=== PATIENT | male | born 1970 | race Two or more races ===

== ENCOUNTER 2017-09-07 14:19 | Emergency (ER) | payer OTHER ==
[2017-09-07 14:48] VITALS: TEMP 98.2; BMI 22.4
--- NOTE | 2017-09-07 17:14 | PDOC ---
History of Present Illness <Curry Mensah - Last Filed: 09/07/17 17:13> <Will Dowd - Last Filed: 09/07/17 20:25> - General Chief Complaint: Blood Sugar Problem Stated Complaint: DIABETES Past History - Past Medical History COPD: No Diabetes: Yes - Immunization History Immunization Up to Date: Yes - Suicide/Smoking/Psychosocial Hx Smoking History: Never smoked Have you smoked in the past 12 months: No Information on smoking cessation initiated: No Hx Alcohol Use: No Drug/Substance Use Hx: No Substance Use Type: None <Curry Mensah - Last Filed: 09/07/17 17:13> <Will Dowd - Last Filed: 09/07/17 20:25> - Past Medical History Allergies/Adverse Reactions: Allergies Allergy/AdvReac Type Severity Reaction Status Date / Time No Known Allergies Allergy Verified 09/07/17 14:45 Home Medications: Ambulatory Orders Metformin HCl 500 mg PO BID #60 tablet 09/07/17 Metformin HCl 500 mg PO BID #60 tablet 09/07/17 *Physical Exam - Vital Signs Last Vital Signs Temp Pulse Resp BP Pulse Ox 98.2 F 76 16 131/80 96 09/07/17 14:45 09/07/17 14:45 09/07/17 14:45 09/07/17 14:45 09/07/17 14:45 <MakennaCurry - Last Filed: 09/07/17 17:13> - Vital Signs Last Vital Signs Temp Pulse Resp BP Pulse Ox 98.2 F 76 16 131/80 96 09/07/17 14:45 09/07/17 14:45 09/07/17 14:45 09/07/17 14:45 09/07/17 14:45 <Will Dowd - Last Filed: 09/07/17 20:25> ED Treatment Course - LABORATORY CBC & Chemistry Diagram: 09/07/17 18:30 09/07/17 18:30 <Will Dowd - Last Filed: 09/07/17 20:25> Medical Decision Making - Medical Decision Making 09/07/17 20:25 Patient presents to the emergency department with hyperglycemia has not been to doctor in several years and blurry vision. His vision is 20/40 bilaterally has no visual loss no visual field deficits His serum glucose was 300 he was treated with normal saline and metformin emergency department. He was provided with primary care follow-up at her clinic on Saturday he was given a prescription for metformin he will need to follow up with the clinic for further management he will return to emergency [facility] for any severe worsening symptoms or for any concerns. <Will Dowd - Last Filed: 09/07/17 20:25> *DC/Admit/Observation/Transfer <Curry Mensah - Last Filed: 09/07/17 17:13> <Will Dowd - Last Filed: 09/07/17 20:25> Diagnosis at time of Disposition: Hyperglycemia - Prescriptions Prescriptions: Metformin HCl 500 mg PO BID #60 tablet Metformin HCl 500 mg PO BID #60 tablet - Referrals Referrals: Zachery Balderrama MD [Staff Physician] - - Patient Instructions Printed Discharge Instructions: DI for Hyperglycemia -- Adult Additional Instructions: Start metformin as prescribed. [place] [facility] The phone number is [phone] The Address is [address] [place] [address] Return to emergency department for any severe worsening symptoms or for any concerns. Print Language: [place]
[2017-09-07] MEDS ORDERED: SODIUM CHLORIDE 0.9% 1000 ML INFUS.BAG IV ONE (17:37)
--- NOTE | 2017-09-07 18:15 | PDOC ---
Attending Attestation - HPI HPI: 09/07/17 18:16 The patient is a 46 year old male with a significant PMH of Type 1 diabetes who presents to the emergency department with blurry vision since this morning. The patient reports that has not seen an eye doctor in 2 years. The patient does not have a primary care physician. The patient denies chest pain, shortness of breath, headache and dizziness. Denies fever, chills, nausea, vomit, diarrhea and constipation. Allergies: NKA Past surgical history: None reported. Social history: No reported alcohol, drug, or cigarette use. - Physicial Exam PE: 09/07/17 18:30 Vitals: Triage Vital signs reviewed General Appearance: no acute distress, well nourished well developed, Head: Atraumatic, normocephalic Eyes: (+) 20/40 bilaterally. Pupils equal reactive round, extraocular movement intact Neck: Supple;No Nuchal rigidity Chest Wall: Nontender Cardiac: Regular rate and rhythm, no murmurs, no rubs, no gallops, Lungs: Clear to auscultation bilateral, good air movement bilaterally, Abdomen: Soft, nondistended, normal bowel sounds, nontender to palpation Extremities: Full range of motion to all extremities, no cyanosis, clubbing, or edema Skin: Warm and dry, no rashes or lesions, no petechiae Neuro: AOX3; Cranial Nerves 2-12 grossly intact, Strength intact to all extremities, Sensation intact to all extremities Psych: normal mood, normal affect
[2017-09-07 18:40] LABS: BASOPHIL 0.5 % (0-2.0); MCH 28.5 pg (25.7-33.7); MCHC 33.8 g/dl (32.0-35.9); MEAN CELL VOLUME 84.3 fl (80-96); MEAN PLT VOLUME 9.1 fl (7.5-11.1); NEUTROPHILS 60.6 % (42.8-82.8); PLATELET COUNT 185 K/MM3 (134-434); RDW 12.6 % (11.9-15.9); WHITE BLOOD COUNT 5.9 K/mm3 (4.0-10.0)
[2017-09-07 19:23] VITALS: BP 130/86; PULSE 92
[2017-09-07 19:25] LABS: ALBUMIN 3.3 g/dl (3.4-5.0); ALK PHOS 169 U/L (45-117); ANION GAP 10 (8-16); BILIRUBIN,TOTAL 0.3 mg/dL (0.2-1.0); CALCIUM 8.3 mg/dL (8.5-10.1); CO2 26 mmol/L (21-32); CREATININE 0.7 mg/dL (0.7-1.3); SGOT/AST 13 U/L (15-37); SGPT/ALT 52 U/L (12-78); TOT PROT 6.9 g/dl (6.4-8.2)
[2017-09-07 19:26] LABS: GLUCOSE,RANDOM 315 mg/dL (74-106)
[2017-09-07] MEDS ORDERED: metFORMIN HCL 500 MG TABLET (FP) PO ONE (19:58)
[2017-09-07] MEDS ORDERED: metFORMIN HCL 500 MG TABLET (FP) ONE (20:01)
== END 2017-09-07 20:11 | disposition home or self-care (01) ==
LOC: JER 14:19
PROC: 4A07X0Z Measurement of Visual Acuity, External Approach (ICD-10-PCS; principal; 2017-09-07)
DX: E11.65 Type 2 diabetes mellitus with hyperglycemia (principal); Z79.84 Long term (current) use of oral hypoglycemic drugs
CPT/HCPCS: 36415; 80053; 85025; 99173; 99281-25

== ENCOUNTER 2018-12-11 20:50 | Inpatient (IN) | payer OTHER ==
--- NOTE | 2018-12-11 21:00 | PDOC ---
Rapid Medical Evaluation Chief Complaint: Syncope/Near Syncope Time Seen by Provider: 12/11/18 20:55 Medical Evaluation: Allergies Allergy/AdvReac Type Severity Reaction Status Date / Time No Known Allergies Allergy Verified 09/07/17 14:45 12/11/18 20:59 The patient presents with a chief complaint of: near syncope and confusion, diabetic (not taking meds), states increased thirst I have performed a brief in-person evaluation of this patient Pertinent physical exam findings: vss, appears confused , slightly lethargic, fruity breath I have ordered the following: labs, urine, ekg, ct, xray, bgm The patient will proceed to the ED for further evaluation. Discharge Disposition - Diagnosis Hyperglycemia - Discharge Dispostion Disposition: HOME Condition at time of disposition: Stable - Prescriptions - Referrals - Patient Instructions - Post Discharge Activity
[2018-12-11] MEDS ORDERED: SODIUM CHLORIDE 1,000 ML IV STA (21:04)
[2018-12-11] MEDS ORDERED: SODIUM CHLORIDE 0.9% 1000 ML INFUS.BAG IV ONE (21:26)
--- NOTE | 2018-12-11 21:33 | PDOC ---
Attending Attestation - HPI HPI: 12/12/18 01:11 Patient is a 48 year old female with a PMH of DM presents after an episode of lightheadedness and hyperglycemia. Patient's history is limited secondary to slurred speech. Patient's blood glucose in the ER was >600. Patient reports he is noncompliant to his DM meds. Patient denies cp, sob, F/C/N/V, constipation, diarrhea or urinary symptoms. Allergie: NKDA Surgeries: None reported Social Hx: No reported drug or cigarette use. Occasional alcohol use. - Physicial Exam PE: 12/12/18 01:11 ADULT PHYSICAL EXAM Constitutional: Awake, alert, but confused. Head: Normocephalic. Atraumatic Eyes: PERRL. EOMI. Conjunctivae are not pale. ENT: Mucous membranes are moist and intact. Posterior pharynx without exudates or erythema. Uvula midline. Neck: Supple. Full ROM. No lymphadenopathy. Cardiovascular: Regular rate. Regular rhythm. S1, S2 regular. Distal pulses are 2+ and symmetric. Pulmonary/Chest: No evidence of respiratory distress. Clear to auscultation bilaterally No wheezing, rales or rhonchi. Abdominal: Soft and non-distended. There is no tenderness. No rebound, guarding or rigidity. No organomegaly. No palpable masses. Good bowel sounds. Musculoskeletal: No edema. No cyanosis. No clubbing. Full range of motion in all extremities. Nocalf tenderness. Radial/pedal pulses are intact and 2+ bilaterally Skin: Skin is warm and dry. No petechiae. No purpura. Neurological: (+) Altered mental status. (+) Slurred speech. Psychiatric: Good eye contact. - Medical Decision Making <Stephanie Nagel - Last Filed: 12/12/18 01:11> - Resident Resident Name: Donato Sheridan - ED Attending Attestation I have performed the following: I have examined & evaluated the patient, The case was reviewed & discussed with the resident, I agree w/resident's findings & plan, Exceptions are as noted - Critical Care Time Total Critical Care Time: 45 Critical Care Statement: The care of this patient involved high complexity decision making to prevent further life threatening deterioration of the patient 's condition and/or to evaluate & treat vital organ system(s) failure or risk of failure. - Medical Decision Making 12/11/18 21:28 I, Dr. Kaelyn Meyer, DO, attest that this document has been prepared under my direction and personally reviewed by me in its entirety. I further attest, that it accurately reflects all work, treatment, procedures and medical decision -making performed by me. 12/11/18 21:30 a/p: 48yo male presents for eval of hyperglycemia and an episode of feeling lightheaded at work and seeing a bright light at work -noncomplaint with dm meds -glu >600 -pt nonfocal neuro, but confused and poor historian -denies f/c -concern for toxic metabolic encephalopathy -will send labs, lactate, ammonia -will obtain ekg -cxr -head ct -will give ivf hydration, acetone -will monitor and reassess -pt will most likely need admission 12/11/18 22:02 pt now with R sided facial droop, confused UE and LE muscle strength 5/5 follows simple commands stat head ct ordered - stroke protocol 12/11/18 22:17 no acute findings on head ct, pending official read call palced to neurology cxr clear 12/11/18 22:33 resident discussed the case with Dr. Collins who recommends stabilizing metabolic abnl no tpa at this time 12/11/18 22:37 acetone + insulin gtt ordered 12/12/18 01:02 facial droop has resolved glucose 132 insulin gtt stopped will downgrade to tele <Kaelyn Meyer - Last Filed: 12/12/18 01:43> Heart Score/ECG Review - ECG Intrepretation Comment:: 12/11/18 21:28 sinus at 86, nl axis, nl interval, no acute st/t wave findings, mildly peaked t waves <Kaelyn Meyer - Last Filed: 12/12/18 01:43>
[2018-12-11 21:50] LABS: VENOUS PC02 42.9 mmHg (38-52); VENOUS PH 7.4 (7.32-7.42); VENOUS PO2 52.3 mmHg (28-48)
[2018-12-11 21:55] LABS: BASO % 0.2 % (0-2.0); EOS % 0.9 % (0-4.5); HEMATOCRIT 40.7 % (35.4-49); MCH 29.4 pg (25.7-33.7); MCHC 34.5 g/dl (32.0-35.9); MEAN CELL VOLUME 85.4 fl (80-96); MEAN PLT VOLUME 8.9 fl (7.5-11.1); MONO % 11.5 % (3.8-10.2); NEUT % 66.4 % (42.8-82.8); PLATELET COUNT 268 K/MM3 (134-434); RBC 4.76 M/mm3 (4.00-5.60); RDW 12.5 % (11.9-15.9); WHITE BLOOD COUNT 6.1 K/mm3 (4.0-10.0)
--- NOTE | 2018-12-11 22:00 | PDOC ---
History of Present Illness - General Chief Complaint: Syncope/Near Syncope Stated Complaint: FAINTED Time Seen by Provider: 12/11/18 20:55 History Source: Patient Exam Limitations: Clinical Condition - History of Present Illness Initial Comments: 12/11/18 21:51 Patient is a 48M with history of DM (on oral meds, unsure of what it is) here today complaining of syncope. He states that he started seeing lights and then passed out at work, but his boss held him up. Patient's history is limited by confusion and slurring of speech. Fingerstick >600 in triage. Patient's family states that he does not take his medications. Patient says he drinks once in awhile. Denies fever, cough, rhinorrhea, nausea, vomiting, cough, shortness of breath, chest pain. NIH Stroke Scale - Last Known Well Date/Time & Onset Date Last Known Well: 12/11/18 Time Last Known Well: 21:55 - Initial Evaluation Level of consciousness: Alert Ask patient the month and their age: Answers both correctly Ask patient to open & close eyes; make fist and let go: Obeys both correctly Best gaze (horizontal eye movement): Normal Visual field testing: No visual field loss Facial paresis (Show teeth/raise eyebrows/close eyes tight): Minor paralysis ( flattened nasolabial fold, asymmetry on smiling) Motor Function: Left Arm: Normal Motor Function: Right Arm: Normal (extends arm 90 (or 45) degrees for 10 seconds without drift Motor Function: Left Leg: Normal (extends leg 30 degrees for 5 seconds without drift) Motor Function: Right Leg: Normal (extends leg 30 degrees for 5 seconds without drift) Limb Ataxia: No ataxia Sensory(Use pinprick test arms,legs,trunk,face/side to side): Normal Best language (Describe picture, name items, read sentences): No Aphasia Dysarthria (read several words): Mild to moderate slurring of words (slurring speech before change in status) Extinction and Inattention: No abnormality - Total Score NIH Stroke Scale Score: 2 Past History - Past Medical History Allergies/Adverse Reactions: Allergies Allergy/AdvReac Type Severity Reaction Status Date / Time No Known Allergies Allergy Verified 09/07/17 14:45 Home Medications: Ambulatory Orders metFORMIN HCL [Metformin HCl] 500 mg PO BID #60 tablet 09/07/17 metFORMIN HCL [Metformin HCl] 500 mg PO BID #60 tablet 09/07/17 COPD: No Diabetes: Yes - Immunization History Immunization Up to Date: Yes - Suicide/Smoking/Psychosocial Hx Smoking History: Never smoked Have you smoked in the past 12 months: No Information on smoking cessation initiated: No Hx Alcohol Use: No Drug/Substance Use Hx: No Substance Use Type: None Review of Systems - Review of Systems Able to Perform ROS?: Yes Comments:: 12/11/18 22:18 GENERAL/CONSTITUTIONAL: No fever or chills. No weakness. HEAD, EYES, EARS, NOSE AND THROAT: No change in vision. No sore throat. CARDIOVASCULAR: No chest pain or shortness of breath RESPIRATORY: No cough, wheezing, or hemoptysis. GASTROINTESTINAL: No nausea, vomiting, diarrhea or constipation. GENITOURINARY: No dysuria, frequency, or change in urination. MUSCULOSKELETAL: No joint or muscle swelling or pain. No neck or back pain. SKIN: No rash NEUROLOGIC: No headache, +loss of consciousness, no change in strength/ sensation. ENDOCRINE: No increased thirst. No abnormal weight change HEMATOLOGIC/LYMPHATIC: No anemia, easy bleeding, or history of blood clots. ALLERGIC/IMMUNOLOGIC: No hives or skin allergy. *Physical Exam - Vital Signs Last Vital Signs Temp Pulse Resp BP Pulse Ox 98.4 F 90 18 127/81 100 12/11/18 21:04 12/11/18 21:04 12/11/18 21:04 12/11/18 21:04 12/11/18 21:04 - Physical Exam Comments: 12/11/18 22:40 GENERAL: Awake, alert, and fully oriented, in no acute distress HEAD: No signs of trauma, normocephalic, atraumatic EYES: PERRLA, EOMI, sclera anicteric, conjunctiva clear ENT: Auricles normal inspection, hearing grossly normal, nares patent, oropharynx clear without exudates. Dry mucosa NECK: Normal ROM, supple, no lymphadenopathy, JVD, or masses LUNGS: No distress, speaks full sentences, clear to auscultation bilaterally HEART: Regular rate and rhythm, normal S1 and S2, no murmurs, rubs or gallops, peripheral pulses normal and equal bilaterally. ABDOMEN: Soft, nontender, normoactive bowel sounds. No guarding, no rebound. No masses EXTREMITIES: Normal inspection, Normal range of motion, no edema. No clubbing or cyanosis. NEUROLOGICAL: Cranial nerves II through XII grossly intact. Slurring speech, normal gait, no focal sensorimotor deficits SKIN: Warm, Dry, normal turgor, no rashes or lesions noted. Moderate Sedation - Procedure Monitoring Vital Signs: Procedure Monitoring Vital Signs Temperature 98.4 F 12/11/18 21:04 Pulse Rate 90 12/11/18 21:04 Respiratory Rate 18 12/11/18 21:04 Blood Pressure 127/81 12/11/18 21:04 O2 Sat by Pulse Oximetry (%) 100 12/11/18 21:04 ED Treatment Course - LABORATORY CBC & Chemistry Diagram: 12/11/18 21:31 12/11/18 21:31 - ADDITIONAL ORDERS Additional order review: Laboratory Results 12/11/18 21:02 POC Glucometer > 600 12/11/18 21:02 POC Glucometer > 600 - Medications Given in the ED: ED Medications Discontinued Medications Generic Name Dose Route Start Last Admin Trade Name Freq PRN Reason Stop Dose Admin Sodium Chloride 1,000 ml 12/11/18 21:26 12/11/18 21:29 Normal Saline - IV 12/11/18 21:27 1,000 ml ONCE ONE Administration Medical Decision Making - Medical Decision Making 12/11/18 22:40 Patient is 48M here today with syncope. Vitals normal and stable. Glucose >600. DDx includes, but is not limited to: HHS, DKA, intoxication. At 21:55, patient developed right sided facial droop. Code Hernandez called. Rushed to CT, normal. NIHSS 2. Neuro consulted, d/w Dr Collins, no tpa because of low NIHSS and DM. CBC normal. pH normal. CMP shows no gap, glucose >600, K 4.5. Acetone 2+. Fluids changed to NS w/ 20meq KCl. Insulin drip started, no bolus because of neuro symptoms. CXR clear. Case discussed with Erik Puentes, accepted to ICU. Pending medicine admission. 12/12/18 02:12 Sugar in 150s, insulin drip held, facial droop resolved. Tolerating PO. *DC/Admit/Observation/Transfer Diagnosis at time of Disposition: Hyperglycemia - Discharge Dispostion Condition at time of disposition: Stable Decision to Admit order: Yes - Referrals - Patient Instructions - Post Discharge Activity
[2018-12-11 22:22] LABS: BLOOD UREA NITROGEN 17 mg/dL (7-18); CREATININE 0.7 mg/dL (0.55-1.3)
[2018-12-11 22:23] LABS: ALK PHOS 206 U/L (45-117); ANION GAP 11 MMOL/L (8-16); BILIRUBIN,TOTAL 0.2 mg/dL (0.2-1); CALCIUM 8.4 mg/dL (8.5-10.1); CHLORIDE 93 mmol/L (98-107); CO2 25 mmol/L (21-32); MAGNESIUM 2.2 mg/dL (1.8-2.4); POTASSIUM 4.5 mmol/L (3.5-5.1); SGOT/AST 13 U/L (15-37); SGPT/ALT 26 U/L (13-61); SODIUM 129 mmol/L (136-145); TOT PROT 6.7 g/dl (6.4-8.2)
[2018-12-11 22:24] LABS: GLUCOSE,RANDOM 675 mg/dL (74-106)
[2018-12-11] MEDS ORDERED: SODIUM CHLORIDE 0.9%/KCL 20 MEQ/1,000 ML INFUS.BAG IV SCH (22:30)
[2018-12-11] MEDS ORDERED: INSULIN REGULAR 100 UNITS in SODIUM CHLORIDE 99 ML IVPB SCH (22:30)
[2018-12-11] MEDS ORDERED: INSULIN REGULAR HUMAN 100 UNITS/ML *VIAL ONE (23:06)
--- NOTE | 2018-12-11 23:07 | PN ---
Teaching Attending Note Name of Resident: Aidee Hogan ATTENDING PHYSICIAN STATEMENT I saw and evaluated the patient. I reviewed the resident's note and discussed the case with the resident. I agree with the resident's findings and plan as documented. SUBJECTIVE: Patient is a 48 year old man with history of NIDDM (on metformain?) presents to the ER complaining of syncope. He states that he started seeing lights and then passed out at work, but his boss held him up. Patient's history is limited by confusion and slurring of speech. Fingerstick >600 in triage. Patient's family states that he does not take his medications. Patient says he drinks once in awhile. Denies fever, cough, rhinorrhea, nausea, vomiting, cough, shortness of breath, chest pain. Diabetes was diagnosed 5 years ago, and his sister also has diabetes. While in the ER, he developed a right facial droop and a code arias was called. Head CT did not show any acute pathology and his NIHSS was 2. Neurology was consulted and he was deemed not a candidate for tPa. OBJECTIVE: Alert Vital Signs Period Temp Pulse Resp BP Sys/Pemberton Pulse Ox Last 24 Hr 98.4 F 90 18 127/81 100-100 HEENT: No Jaundice, eye redness or discharge, PERRLA, EOMI. Normocephalic, atraumatic. External ears are normal and hearing is grossly intact. No nasal discharge. Neck: Supple, nontender. No palpable adenopathy or thyromegaly. No JVD Chest: Good effort. Clear to auscultation and percussion. Heart: Regular. No S3, rub or murmur Abdomen: Not distended, soft, nontender and no HSM. No rebound or guarding. Normoactive bowel sounds. Ext: Peripheral pulses intact. No leg edema. Skin: Warm and dry. No petechiae, rash or ecchymosis. Neuro: Alert. Oriented to person. Sluggish. CN 2-12 grossly intact. Sensation grossly intact in all four extremities and DTR are symmetric. Current Medications Generic Name Dose Route Start Last Admin Trade Name Freq PRN Reason Stop Dose Admin Potassium Chloride/Sodium Chloride 20 meq in 1,000 mls @ 250 mls/hr 12/11/18 22:30 Ns+20 Meq Kcl - IV ASDIR SUNDAR Insulin Human Regular 100 100 mls @ 6 mls/hr 12/11/18 22:30 units/ Sodium Chloride IVPB TITR SUNDAR Protocol 0.1 UNITS/KG/HR Home Medications Medication Instructions Recorded metFORMIN HCL [Metformin HCl] 500 mg PO BID #60 tablet 09/07/17 metFORMIN HCL [Metformin HCl] 500 mg PO BID #60 tablet 09/07/17 Abnormal Lab Results 12/11/18 12/11/18 12/11/18 21:31 21:31 21:31 Monocytes % 11.5 H POC VBG pO2 52.3 H Mixed VBG HCO3 25.7 H Sodium 129 L Chloride 93 L Random Glucose 675 H* Calcium 8.4 L AST 13 L Alkaline Phosphatase 206 H Albumin 3.0 L Salicylates 12/11/18 21:31 Monocytes % POC VBG pO2 Mixed VBG HCO3 Sodium Chloride Random Glucose Calcium AST Alkaline Phosphatase Albumin Salicylates < 1.7 L ASSESSMENT AND PLAN: 1. Hyperosmolar hyperglycemic state - Caused by his not taking his diabetes medication. HHS may explain the syncope and stroke-like symptoms. No acute pathology on head CT. Extensive workup for syncope is not indicated at this time. Continue IV insulin, IV NS, IV KCL and monitor BMP. Hyponatremia likely due to hyperglycemia. Once stable, will provide comprehensive diabetes patient teaching and counseling about the importance of adherence to prescribed diabetes regimen, euglycemia, eye care and foot care. Consult social media marketing manager to help address the socioeconomic issues that may be causing nonadherence to his outpatient diabetes regimen. 2. Hypoalbuminemia - Possibly due to combined effects of malnutrition and inflammation associated with comorbid chronic conditions. Will ensure adequate dietary protein intake and also consult internal grinder tender. 3. DVT prophylaxis - Lovenox 40 mg SQ q 24 hours. 4. Advance directives - Full code
--- NOTE | 2018-12-11 23:22 | CONSULT ---
Consult Consult Specialty:: ICU Reason for Consultation:: HHS requiring insulin drip - History of Present Illness Chief Complaint: syncope and confusion. History of Present Illness: 48 yo M with PMhx of poorly controlled NIDDM presents to ER after syncopal episode today at work. He was at work today when he experienced a syncopal episode. LOC for a few seconds but no trauma to head. His boss caught him and then took him home. While at home his family members noticed he was very confused and weak and brought him to ER. While in ER BG was 675. He was found to have slurred speech and some facial asymmetry and was sent for CT head which was negative for acute intercranial pathology. He was hospitalized in 2016 for hyperglycemia and has not taken medication since that admission as per family member. He Denies CP, ROSEN ,SOB, palpitation, nausea, vomiting, fever or chills. - History Source History Provided By: Family Member Limitations to Obtaining History: Clinical Condition - Past Medical History Endocrine: Yes: Diabetes Mellitus - Past Surgical History Past Surgical History: Yes: None - Alcohol/Substance Use Hx Alcohol Use: Yes Number of Drinks Daily: 0 (He does not drink daily but drinks heavy when he does drink. Last drink was 12/06/18) - Smoking History Smoking history: Never smoked Have you smoked in the past 12 months: No - Social History Usual Living Arrangement: With Significant Other ADL: Independent History of Recent Travel: No Home Medications - Allergies Allergies/Adverse Reactions: Allergies Allergy/AdvReac Type Severity Reaction Status Date / Time No Known Allergies Allergy Verified 09/07/17 14:45 - Home Medications Home Medications: Ambulatory Orders metFORMIN HCL [Metformin HCl] 500 mg PO BID #60 tablet 09/07/17 metFORMIN HCL [Metformin HCl] 500 mg PO BID #60 tablet 09/07/17 Family Disease History - Family Disease History Family Disease History: CA: Father (brain tumor?) Review of Systems - Review of Systems Constitutional: reports: Lethargy, Weakness Eyes: reports: No Symptoms HENT: reports: No Symptoms Cardiovascular: denies: Chest Pain, Palpitations, Shortness of Breath Respiratory: denies: Cough, SOB, Wheezing Gastrointestinal: denies: Abdominal Pain, Diarrhea, Nausea, Vomiting Genitourinary: denies: Burning, Dysuria Musculoskeletal: reports: No Symptoms Integumentary: reports: No Symptoms Neurological: reports: Syncope Physical Exam Vital Signs: Vital Signs Temperature 98.4 F 12/11/18 21:04 Pulse Rate 90 12/11/18 21:04 Respiratory Rate 18 12/11/18 21:04 Blood Pressure 127/81 12/11/18 21:04 O2 Sat by Pulse Oximetry (%) 100 12/11/18 21:07 Constitutional: Yes: No Distress, Calm, Thin Eyes: Yes: Conjunctiva Clear, EOM Intact HENT: Yes: Atraumatic, Normocephalic Neck: Yes: Supple, Trachea Midline Cardiovascular: Yes: Bradycardia, S1, S2. No: JVD, Gallop, Murmur Respiratory: Yes: Regular, CTA Bilaterally Gastrointestinal: Yes: Normal Bowel Sounds, Soft. No: Distention, Tenderness Musculoskeletal: No: Back Pain, Muscle Pain Extremities: No: Calf Tenderness, Cool, Cyanosis, Erythema Edema: No Peripheral Pulses WNL: Yes Neurological: Yes: Confusion, Dysarthria ...Motor Strength: WNL Labs: CBC, BMP 12/11/18 21:31 12/11/18 21:31 Imaging - Results Cat Scan: Report Reviewed (No acute intercranial pathology.), Image Reviewed Assessment/Plan A:48 yo M with PMhx of poorly controlled NIDDM presents to ER after syncopal episode today at work found to be in hypersomolar hyperglycemic state. PLAN: NEURO: * acute confusion most likely 2/2 HHS * CT head negative. * continue to monitor for change in mental status * Neuro checks Q2H CV: * BP within normal limits * No meds at this time * cont. to monitor PULM: * No active pulm issues * supplemental O2 PRN GI: * NPO for now * once HHS resolved ADA diet * Zofran for nausea PRN ENDO: * HHS pH >7.30, a serum bicarbonate >20 mEq/L, a serum glucose >600 mg/dL , and mild ketonemia * Started on Insulin drip 0.1 units/ kg/ hr; once sugars <300 reduce drip to 0.05 units/kg/hr * check BMP q2H * IVF with NS @ 250 ml/hr; once sugars <300 switch fluids to D5 1/2 NS @ 150ml/ hr * add 20 meq of potassium to IVF if K+ between 3.3-5.3 * keep sugars between 250-300 until mentally alert. * Once alert and able to eat continue insulin drip for one hour and then start SQ ISS. FEN: * IVF with NS @ 250 ml/hr; once sugars <300 switch fluids to D5 1/2 NS @ 150ml/ hr * monitor e-lytes and replete PRN * NPO until more alert. DISPO: Continue to monitor in ICU. <FULL CODE>
[2018-12-12 00:05] LABS: COCAINE, UR NEGATIVE ng/ml (CUTOFF=300); METHADONE, UR NEGATIVE ng/ml (CUTOFF=300); OPIATES, URI NEGATIVE ng/ml (CUTOFF=300); PHENCYCLIDINE,URINE NEGATIVE ng/ml (CUTOFF=25); URINE AMPHETAMINES NEGATIVE ng/ml (CUTOFF=500); URINE BARBITURATES NEGATIVE ng/ml (CUTOFF=200); URINE BENZODIAZEPINES NEGATIVE ng/ml (CUTOFF=200)
--- NOTE | 2018-12-12 00:23 | HP ---
CHIEF COMPLAINT: syncope PCP: none HISTORY OF PRESENT ILLNESS: 48 year old Greek speaking male presents to the ED for syncope. History was obtained by patients family at bedside. As per daughter, at 7 pm patient was seated at work when he stood up and fell backwards. His boss held him up. He denies hitting his head or any loss of consciousness. Patient came home and was confused prompting his family to bring him into the ER. In the ED, fingerstick showed glucose >600. He was started on 2 liter NS, 20 meq kcl, and insulin drip. While he was in the ED patient developed transient R sided facial droop and slurred speech which has since resolved. CT head was negative. CXR was negative. On evaluation patient was awake and oriented to name. He has no acute complaints. He denies headache, dizziness, chest pain, SOB, abdominal pain, bladder/bowel incontinence. Pts daughter states in 2008 he had a 'stroke' where he bit his tongue and was brought to the hospital. She has no other information about the incident. She states patient was diagnosed with diabetes 5 years ago when he came into the ED due to not feeling well and polyuria. He does not have a PCP or take his medications. POC: Daughter, Kandice - ER course was notable for: (1) Glu 675, AG 11, Trop neg x1, Acetone 2+ (2) IV insulin drip, NS given (3) Recent Travel: Denies PAST MEDICAL HISTORY: IDDM stroke (2008) PAST SURGICAL HISTORY: Denies Social History: Smoking: Denies Alcohol: drink beer 2x/ month Drugs: Denies Occupation: Works at a [employer] shop Family: Lives with daughter and Family History: Allergies No Known Allergies Allergy (Verified 09/07/17 14:45) HOME MEDICATIONS: Home Medications Medication Instructions Recorded metFORMIN HCL [Metformin HCl] 500 mg PO BID #60 tablet 09/07/17 metFORMIN HCL [Metformin HCl] 500 mg PO BID #60 tablet 09/07/17 REVIEW OF SYSTEMS CONSTITUTIONAL: +generalized weakness, malaise Absent: fever, chills, diaphoresis, loss of appetite, weight change HEENT: Absent: rhinorrhea, nasal congestion, throat pain, throat swelling, difficulty swallowing, mouth swelling, ear pain, eye pain, visual changes CARDIOVASCULAR: Absent: chest pain, syncope, palpitations, irregular heart rate, lightheadedness , peripheral edema RESPIRATORY: Absent: cough, shortness of breath, dyspnea with exertion, orthopnea GASTROINTESTINAL: Absent: abdominal pain, abdominal distension, nausea, vomiting, diarrhea, constipation GENITOURINARY: Absent: dysuria, frequency, urgency, hesitancy, hematuria MUSCULOSKELETAL: Absent: myalgia, arthralgia, joint swelling, back pain, neck pain SKIN: Absent: rash, itching, pallor NEUROLOGIC: +mental status changes, oriented to name Absent: headache, focal weakness or paresthesias, dizziness, unsteady gait PHYSICAL EXAMINATION Vital Signs - 24 hr 12/11/18 12/11/18 21:04 21:07 Temperature 98.4 F Pulse Rate 90 Respiratory 18 Rate Blood Pressure 127/81 O2 Sat by Pulse 100 100 Oximetry (%) GENERAL: Greek-speaking. Awake and alert. Oriented only to name. NAD. Resting comfortably in bed. HEENT: AT/NC. EOMI. MORIS. Facial symmetry noted. No tongue deviation. Moist mucus membranes. NECK: Normal range of motion, supple without lymphadenopathy, JVD, or masses. LUNGS: CTA B/L. No wheezes/crackles noted. HEART: RRR. Normal S1, S2. No murmurs noted. ABDOMEN: Soft NT/ND. Normoactive bowel sounds. MUSCULOSKELETAL: Normal range of motion at all joints. No bony deformities or tenderness. No CVA tenderness. UPPER EXTREMITIES: 2+ pulses, warm, well-perfused. No cyanosis. No clubbing. No peripheral edema. 5/5 muscle strength b/l LOWER EXTREMITIES: 2+ pulses, warm, well-perfused. No calf tenderness. No peripheral edema. 5/5 muscle strength b/l. NEUROLOGICAL: Cranial nerves II-XII intact. Normal speech. SKIN: Warm, dry, normal turgor, no rashes or lesions noted, normal capillary refill. Laboratory Results - last 24 hr 12/11/18 12/11/18 12/11/18 21:02 21:31 21:31 WBC 6.1 RBC 4.76 Hgb 14.0 Hct 40.7 MCV 85.4 MCH 29.4 MCHC 34.5 RDW 12.5 Plt Count 268 D MPV 8.9 Absolute Neuts (auto) 4.1 Neutrophils % 66.4 Lymphocytes % 21.0 D Monocytes % 11.5 H Eosinophils % 0.9 Basophils % 0.2 Nucleated RBC % 0 VBG pH POC VBG pCO2 POC VBG pO2 Mixed VBG HCO3 Sodium 129 L Potassium 4.5 Chloride 93 L Carbon Dioxide 25 Anion Gap 11 BUN 17 Creatinine 0.7 Creat Clearance w eGFR > 60 POC Glucometer > 600 Random Glucose 675 H* Lactic Acid Calcium 8.4 L Magnesium 2.2 Total Bilirubin 0.2 AST 13 L ALT 26 Alkaline Phosphatase 206 H Ammonia Creatine Kinase 72 Troponin I < 0.02 Total Protein 6.7 Albumin 3.0 L Salicylates Opiates Screen Methadone Screen Acetaminophen Barbiturate Screen Phencyclidine Screen Ur Amphetamines Screen MDMA (Ecstasy) Screen Benzodiazepines Screen Cocaine Screen U Marijuana (THC) Screen Alcohol, Quantitative Acetone, Qual 12/11/18 12/11/18 12/11/18 21:31 21:31 21:31 WBC RBC Hgb Hct MCV MCH MCHC RDW Plt Count MPV Absolute Neuts (auto) Neutrophils % Lymphocytes % Monocytes % Eosinophils % Basophils % Nucleated RBC % VBG pH 7.40 POC VBG pCO2 42.9 POC VBG pO2 52.3 H Mixed VBG HCO3 25.7 H Sodium Potassium Chloride Carbon Dioxide Anion Gap BUN Creatinine Creat Clearance w eGFR POC Glucometer Random Glucose Lactic Acid Calcium Magnesium Total Bilirubin AST ALT Alkaline Phosphatase Ammonia Creatine Kinase Troponin I Total Protein Albumin Salicylates < 1.7 L Opiates Screen Methadone Screen Acetaminophen < 2.0 L Barbiturate Screen Phencyclidine Screen Ur Amphetamines Screen MDMA (Ecstasy) Screen Benzodiazepines Screen Cocaine Screen U Marijuana (THC) Screen Alcohol, Quantitative Acetone, Qual Positive moderate 2+ 12/11/18 12/11/18 12/11/18 21:31 21:31 21:31 WBC RBC Hgb Hct MCV MCH MCHC RDW Plt Count MPV Absolute Neuts (auto) Neutrophils % Lymphocytes % Monocytes % Eosinophils % Basophils % Nucleated RBC % VBG pH POC VBG pCO2 POC VBG pO2 Mixed VBG HCO3 Sodium Potassium Chloride Carbon Dioxide Anion Gap BUN Creatinine Creat Clearance w eGFR POC Glucometer Random Glucose Lactic Acid 1.0 Calcium Magnesium Total Bilirubin AST ALT Alkaline Phosphatase Ammonia 26.90 Creatine Kinase Troponin I Total Protein Albumin Salicylates Opiates Screen Methadone Screen Acetaminophen Barbiturate Screen Phencyclidine Screen Ur Amphetamines Screen MDMA (Ecstasy) Screen Benzodiazepines Screen Cocaine Screen U Marijuana (THC) Screen Alcohol, Quantitative < 3.0 Acetone, Qual 12/11/18 22:45 WBC RBC Hgb Hct MCV MCH MCHC RDW Plt Count MPV Absolute Neuts (auto) Neutrophils % Lymphocytes % Monocytes % Eosinophils % Basophils % Nucleated RBC % VBG pH POC VBG pCO2 POC VBG pO2 Mixed VBG HCO3 Sodium Potassium Chloride Carbon Dioxide Anion Gap BUN Creatinine Creat Clearance w eGFR POC Glucometer Random Glucose Lactic Acid Calcium Magnesium Total Bilirubin AST ALT Alkaline Phosphatase Ammonia Creatine Kinase Troponin I Total Protein Albumin Salicylates Opiates Screen Negative Methadone Screen Negative Acetaminophen Barbiturate Screen Negative Phencyclidine Screen Negative Ur Amphetamines Screen Negative MDMA (Ecstasy) Screen Negative Benzodiazepines Screen Negative Cocaine Screen Negative U Marijuana (THC) Screen Negative Alcohol, Quantitative Acetone, Qual IMAGING: * Head CT: Neg. ?acute or chronic sinusitis. ASSESSMENT/PLAN: 48 year old Greek speaking male presents to the ED for syncope. #Hyperosmolar Hyperglycemic State; likely 2/2 IDDM, in setting of lack of physician follow-up, non-adherence to medication. -Pt initial Glu 669, IV insulin drip started, latest glucose now 130. -Will DC IV insulin drip; start ISS/BGMs ACHS and give Levemir 15U -Per family, pt previously on some unknown DM med, but he stopped taking it and has not followed up with a PCP in many years. Needs close outpatient follow up for glucose monitoring. -[employer] on following up with ophtho and podiatry as an outpatient -Cont NS + 20 mEq KCl IV -A1c ordered #Syncope; could be symptoms of HHS vs. TIA; +orthostatics -Symptoms now resolved upon encounter. No facial droop, slurred speech, focal neurological deficits noted on exam. -Head CT neg -Pt passed bedside swallow, is able to tolerate PO #Hyponatremia; corrected = 138. -recheck BMP in AM #Prophylaxis -Lovenox 40 SQ #FEN -NS + 20 mEq KCl IV -recheck BMP in AM -Diabetic diet dispo -Originally admitted to ICU due to insulin drip, now downgraded to tele -full code Visit type - Emergency Visit Emergency Visit: Yes ED Registration Date: 12/11/18 Care time: The patient presented to the Emergency Department on the above date and was hospitalized for further evaluation of their emergent condition. - New Patient This patient is new to me today: Yes Date on this admission: 12/14/18 - Critical Care Critical Care patient: No
[2018-12-12 00:35] LABS: URINE APPEARANCE CLEAR; URINE BILIRUBIN NEGATIVE (<2.0 mg/dL); URINE COLOR COLORLESS; URINE GLUCOSE (UA) 3+ (NEGATIVE); URINE KETONE TRACE (NEGATIVE); URINE LEUK ESTERASE NEGATIVE (NEGATIVE); URINE NITRITE NEGATIVE (NEGATIVE); URINE PROTEIN NEGATIVE (NEGATIVE); URINE UROBILINOGEN NEGATIVE mg/dL (0.2-1.0)
[2018-12-12] MEDS ORDERED: INSULIN (LEVEMIR) 100 UNITS/ML UNITS SQ ONE (04:26)
[2018-12-12 05:45] LABS: BASO % 0.5 % (0-2.0); EOS % 0.2 % (0-4.5); HEMATOCRIT 36.3 % (35.4-49); HEMOGLOBIN 12.7 GM/dL (11.7-16.9); MCHC 34.9 g/dl (32.0-35.9); MEAN CELL VOLUME 83.2 fl (80-96); MEAN PLT VOLUME 8.3 fl (7.5-11.1); MONO % 7.7 % (3.8-10.2); NEUT % 74.6 % (42.8-82.8); PLATELET COUNT 276 K/MM3 (134-434); RBC 4.37 M/mm3 (4.00-5.60); RDW 12.4 % (11.9-15.9); WHITE BLOOD COUNT 8.2 K/mm3 (4.0-10.0)
[2018-12-12 06:14] LABS: CHOLESTEROL 170 mg/dL (50-200); HDL CHOLESTEROL 39 mg/dL (40-60); TRIGLYCERIDES 89 mg/dL (0-150)
[2018-12-12 06:19] LABS: ALBUMIN 2.6 g/dl (3.4-5.0); ALK PHOS 144 U/L (45-117); ANION GAP 9 MMOL/L (8-16); BILIRUBIN,TOTAL 0.3 mg/dL (0.2-1); BLOOD UREA NITROGEN 9 mg/dL (7-18); CALCIUM 7.7 mg/dL (8.5-10.1); CHLORIDE 104 mmol/L (98-107); CO2 23 mmol/L (21-32); CREATININE 0.5 mg/dL (0.55-1.3); GLUCOSE,RANDOM 299 mg/dL (74-106); SGOT/AST 7 U/L (15-37); SGPT/ALT 26 U/L (13-61); SODIUM 137 mmol/L (136-145)
[2018-12-12] MEDS: INSULIN SLIDING SCALE (NOVOLOG) 1 VIAL SQ SCH ×2 (07:18→10:38)
[2018-12-12] MEDS ORDERED: CALCIUM GLUCONATE 10% - 1,000 MG/10 ML VIAL ONE (07:24)
[2018-12-12] MEDS ORDERED: CALCIUM GLUCONATE 10% - 1,000 MG/10 ML VIAL IVPB ONE (07:30)
--- NOTE | 2018-12-12 09:32 | PN ---
Teaching Attending Note Name of Resident: Conner Mchguh ATTENDING PHYSICIAN STATEMENT I saw and evaluated the patient. I reviewed the resident's note and discussed the case with the resident. I agree with the resident's findings and plan as documented. SUBJECTIVE: OBJECTIVE: Vital Signs Temperature 98.4 F 12/11/18 21:04 Pulse Rate 90 12/12/18 08:27 Respiratory Rate 18 12/12/18 08:27 Blood Pressure 130/78 12/12/18 08:27 O2 Sat by Pulse Oximetry (%) 97 12/12/18 08:27 Young man not in distress HEENT: Mm dry, no anemia, PERRLA EOMI NECK; No JVD No Bruit CHEST: CTA B/L CVS: S1S2 Tachycardia no m/r/g ABD: No distention BS + EXT: no edema BEE PRODUCER: AOX3 non focal ASSESSMENT AND PLAN:48 yrs old man with H/O T2DM present with presyncope in the setting of hyperglycemia due to non compliance, no infectious Sr Osmolality 302 with RPG 675. Problem List - Problems (1) Uncontrolled diabetes mellitus Assessment/Plan: uncontrolled DM due to poor management considering patient HBA!C 14.5needs basal bolus insulin therapy unsure if patient can get it considering insurance status , mean time start wt based basal insulin and correction dose prenmeal, encourage Po hydration. Code(s): E11.65 - TYPE 2 DIABETES MELLITUS WITH HYPERGLYCEMIA (2) Hyperglycemia Assessment/Plan: Due to uncontrolled DM Code(s): R73.9 - HYPERGLYCEMIA, UNSPECIFIED (3) Dehydration Assessment/Plan: Due to uncontroolled DM Code(s): E86.0 - DEHYDRATION (4) Syncope Assessment/Plan: Due sever hyperglycemia and dehydtaion, no ekg abmprmality or alrming signs. Code(s): R55 - SYNCOPE AND COLLAPSE
[2018-12-12] MEDS ORDERED: ENOXAPARIN NA (PORCINE) 40 MG/0.4 ML DISP.SYRIN SQ SCH (10:00)
--- NOTE | 2018-12-12 10:27 | EKG ---
Test Reason : Blood Pressure : / mmHG Vent. Rate : 086 BPM Atrial Rate : 086 BPM P-R Int : 132 ms QRS Dur : 086 ms QT Int : 366 ms P-R-T Axes : 066 -07 035 degrees QTc Int : 437 ms NORMAL SINUS RHYTHM NORMAL ECG NO PREVIOUS ECGS AVAILABLE Confirmed by PHYLLIS MARC MD ([id number]) on 12/12/2018 10:27:11 AM Referred By: Confirmed By:PHYLLIS MARC MD
[2018-12-12] MEDS ORDERED: INSULIN (NOVOLOG) ASPART 100 UNITS/ML 10ML VIAL ONE (10:31)
[2018-12-12] MEDS ORDERED: INSULIN (NOVOLOG) ASPART 100 UNITS/ML 10ML VIAL SQ ONE (12:19)
[2018-12-12 12:31] VITALS: TEMP 98.2; BMI 21.9
[2018-12-12 13:46] VITALS: BP 124/61; PULSE 70
--- NOTE | 2018-12-12 13:54 | DS ---
Physical Exam: SUBJECTIVE: Patient seen and examined OBJECTIVE: Vital Signs Period Temp Pulse Resp BP Sys/Pemberton Pulse Ox Last 24 Hr 98.2 F-99.5 F 70-98 16-18 116-130/61-81 97-100 PHYSICAL EXAM GENERAL: The patient is awake, alert, and fully oriented, in no acute distress. HEAD: Normal with no signs of trauma. EYES: PERRL, extraocular movements intact, sclera anicteric, conjunctiva clear. ENT: Ears normal, nares patent, oropharynx clear without exudates, moist mucous membranes. NECK: Trachea midline, full range of motion, supple. LUNGS: Breath sounds equal, clear to auscultation bilaterally, no wheezes, no crackles, no accessory muscle use. HEART: Regular rate and rhythm, S1, S2 without murmur, rub or gallop. ABDOMEN: Soft, nontender, nondistended, normoactive bowel sounds, no guarding, EXTREMITIES: 2+ pulses, warm, well-perfused, no edema. NEUROLOGICAL: Cranial nerves II through XII grossly intact. normal gait PSYCH: Normal mood, normal affect. SKIN: Warm, dry, normal turgor, LABS Laboratory Results - last 24 hr 12/11/18 12/11/18 12/11/18 21:02 21:31 21:31 WBC 6.1 RBC 4.76 Hgb 14.0 Hct 40.7 MCV 85.4 MCH 29.4 MCHC 34.5 RDW 12.5 Plt Count 268 D MPV 8.9 Absolute Neuts (auto) 4.1 Neutrophils % 66.4 Lymphocytes % 21.0 D Monocytes % 11.5 H Eosinophils % 0.9 Basophils % 0.2 Nucleated RBC % 0 VBG pH POC VBG pCO2 POC VBG pO2 Mixed VBG HCO3 Sodium 129 L Potassium 4.5 Chloride 93 L Carbon Dioxide 25 Anion Gap 11 BUN 17 Creatinine 0.7 Creat Clearance w eGFR > 60 POC Glucometer > 600 Random Glucose 675 H* Hemoglobin A1c % Lactic Acid Calcium 8.4 L Magnesium 2.2 Total Bilirubin 0.2 AST 13 L ALT 26 Alkaline Phosphatase 206 H Ammonia Creatine Kinase 72 Troponin I < 0.02 Total Protein 6.7 Albumin 3.0 L Triglycerides Cholesterol Total LDL Cholesterol HDL Cholesterol Urine Color Urine Appearance Urine pH Ur Specific [place] Urine Protein Urine Glucose (UA) Urine Ketones Urine Blood Urine Nitrite Urine Bilirubin Urine Urobilinogen Ur Leukocyte Esterase Salicylates Opiates Screen Methadone Screen Acetaminophen Barbiturate Screen Phencyclidine Screen Ur Amphetamines Screen MDMA (Ecstasy) Screen Benzodiazepines Screen Cocaine Screen U Marijuana (THC) Screen Alcohol, Quantitative Acetone, Qual 12/11/18 12/11/18 12/11/18 21:31 21:31 21:31 WBC RBC Hgb Hct MCV MCH MCHC RDW Plt Count MPV Absolute Neuts (auto) Neutrophils % Lymphocytes % Monocytes % Eosinophils % Basophils % Nucleated RBC % VBG pH 7.40 POC VBG pCO2 42.9 POC VBG pO2 52.3 H Mixed VBG HCO3 25.7 H Sodium Potassium Chloride Carbon Dioxide Anion Gap BUN Creatinine Creat Clearance w eGFR POC Glucometer Random Glucose Hemoglobin A1c % Lactic Acid Calcium Magnesium Total Bilirubin AST ALT Alkaline Phosphatase Ammonia Creatine Kinase Troponin I Total Protein Albumin Triglycerides Cholesterol Total LDL Cholesterol HDL Cholesterol Urine Color Urine Appearance Urine pH Ur Specific [place] Urine Protein Urine Glucose (UA) Urine Ketones Urine Blood Urine Nitrite Urine Bilirubin Urine Urobilinogen Ur Leukocyte Esterase Salicylates < 1.7 L Opiates Screen Methadone Screen Acetaminophen < 2.0 L Barbiturate Screen Phencyclidine Screen Ur Amphetamines Screen MDMA (Ecstasy) Screen Benzodiazepines Screen Cocaine Screen U Marijuana (THC) Screen Alcohol, Quantitative Acetone, Qual Positive moderate 2+ 12/11/18 12/11/18 12/11/18 21:31 21:31 21:31 WBC RBC Hgb Hct MCV MCH MCHC RDW Plt Count MPV Absolute Neuts (auto) Neutrophils % Lymphocytes % Monocytes % Eosinophils % Basophils % Nucleated RBC % VBG pH POC VBG pCO2 POC VBG pO2 Mixed VBG HCO3 Sodium Potassium Chloride Carbon Dioxide Anion Gap BUN Creatinine Creat Clearance w eGFR POC Glucometer Random Glucose Hemoglobin A1c % Lactic Acid 1.0 Calcium Magnesium Total Bilirubin AST ALT Alkaline Phosphatase Ammonia 26.90 Creatine Kinase Troponin I Total Protein Albumin Triglycerides Cholesterol Total LDL Cholesterol HDL Cholesterol Urine Color Urine Appearance Urine pH Ur Specific [place] Urine Protein Urine Glucose (UA) Urine Ketones Urine Blood Urine Nitrite Urine Bilirubin Urine Urobilinogen Ur Leukocyte Esterase Salicylates Opiates Screen Methadone Screen Acetaminophen Barbiturate Screen Phencyclidine Screen Ur Amphetamines Screen MDMA (Ecstasy) Screen Benzodiazepines Screen Cocaine Screen U Marijuana (THC) Screen Alcohol, Quantitative < 3.0 Acetone, Qual 12/11/18 12/11/18 12/12/18 22:45 22:45 00:51 WBC RBC Hgb Hct MCV MCH MCHC RDW Plt Count MPV Absolute Neuts (auto) Neutrophils % Lymphocytes % Monocytes % Eosinophils % Basophils % Nucleated RBC % VBG pH POC VBG pCO2 POC VBG pO2 Mixed VBG HCO3 Sodium Potassium Chloride Carbon Dioxide Anion Gap BUN Creatinine Creat Clearance w eGFR POC Glucometer 152 Random Glucose Hemoglobin A1c % Lactic Acid Calcium Magnesium Total Bilirubin AST ALT Alkaline Phosphatase Ammonia Creatine Kinase Troponin I Total Protein Albumin Triglycerides Cholesterol Total LDL Cholesterol HDL Cholesterol Urine Color Colorless Urine Appearance Clear Urine pH 6.0 Ur Specific [place] 1.027 Urine Protein Negative Urine Glucose (UA) 3+ H Urine Ketones Trace H Urine Blood Negative Urine Nitrite Negative Urine Bilirubin Negative Urine Urobilinogen Negative Ur Leukocyte Esterase Negative Salicylates Opiates Screen Negative Methadone Screen Negative Acetaminophen Barbiturate Screen Negative Phencyclidine Screen Negative Ur Amphetamines Screen Negative MDMA (Ecstasy) Screen Negative Benzodiazepines Screen Negative Cocaine Screen Negative U Marijuana (THC) Screen Negative Alcohol, Quantitative Acetone, Qual 12/12/18 12/12/18 12/12/18 00:58 05:30 05:30 WBC 8.2 RBC 4.37 Hgb 12.7 Hct 36.3 MCV 83.2 MCH 29.0 MCHC 34.9 RDW 12.4 Plt Count 276 MPV 8.3 Absolute Neuts (auto) 6.1 Neutrophils % 74.6 Lymphocytes % 17.0 Monocytes % 7.7 Eosinophils % 0.2 Basophils % 0.5 Nucleated RBC % 0 VBG pH POC VBG pCO2 POC VBG pO2 Mixed VBG HCO3 Sodium 137 Potassium 4.0 Chloride 104 Carbon Dioxide 23 Anion Gap 9 BUN 9 Creatinine 0.5 L Creat Clearance w eGFR > 60 POC Glucometer 130 Random Glucose 299 H Hemoglobin A1c % Lactic Acid Calcium 7.7 L Magnesium Total Bilirubin 0.3 AST 7 L ALT 26 Alkaline Phosphatase 144 H Ammonia Creatine Kinase Troponin I Total Protein 6.0 L Albumin 2.6 L Triglycerides Cholesterol Total LDL Cholesterol HDL Cholesterol Urine Color Urine Appearance Urine pH Ur Specific [place] Urine Protein Urine Glucose (UA) Urine Ketones Urine Blood Urine Nitrite Urine Bilirubin Urine Urobilinogen Ur Leukocyte Esterase Salicylates Opiates Screen Methadone Screen Acetaminophen Barbiturate Screen Phencyclidine Screen Ur Amphetamines Screen MDMA (Ecstasy) Screen Benzodiazepines Screen Cocaine Screen U Marijuana (THC) Screen Alcohol, Quantitative Acetone, Qual 12/12/18 12/12/1812/12/19 05:30 05:30 06:25 WBC RBC Hgb Hct MCV MCH MCHC RDW Plt Count MPV Absolute Neuts (auto) Neutrophils % Lymphocytes % Monocytes % Eosinophils % Basophils % Nucleated RBC % VBG pH POC VBG pCO2 POC VBG pO2 Mixed VBG HCO3 Sodium Potassium Chloride Carbon Dioxide Anion Gap BUN Creatinine Creat Clearance w eGFR POC Glucometer 288 Random Glucose Hemoglobin A1c % 14.5 H Lactic Acid Calcium Magnesium Total Bilirubin AST ALT Alkaline Phosphatase Ammonia Creatine Kinase Troponin I Total Protein Albumin Triglycerides 89 Cholesterol 170 Total LDL Cholesterol 113 H HDL Cholesterol 39 L Urine Color Urine Appearance Urine pH Ur Specific [place] Urine Protein Urine Glucose (UA) Urine Ketones Urine Blood Urine Nitrite Urine Bilirubin Urine Urobilinogen Ur Leukocyte Esterase Salicylates Opiates Screen Methadone Screen Acetaminophen Barbiturate Screen Phencyclidine Screen Ur Amphetamines Screen MDMA (Ecstasy) Screen Benzodiazepines Screen Cocaine Screen U Marijuana (THC) Screen Alcohol, Quantitative Acetone, Qual 12/12/18 12/12/18 10:19 13:38 WBC RBC Hgb Hct MCV MCH MCHC RDW Plt Count MPV Absolute Neuts (auto) Neutrophils % Lymphocytes % Monocytes % Eosinophils % Basophils % Nucleated RBC % VBG pH POC VBG pCO2 POC VBG pO2 Mixed VBG HCO3 Sodium Potassium Chloride Carbon Dioxide Anion Gap BUN Creatinine Creat Clearance w eGFR POC Glucometer 302 262 Random Glucose Hemoglobin A1c % Lactic Acid Calcium Magnesium Total Bilirubin AST ALT Alkaline Phosphatase Ammonia Creatine Kinase Troponin I Total Protein Albumin Triglycerides Cholesterol Total LDL Cholesterol HDL Cholesterol Urine Color Urine Appearance Urine pH Ur Specific [place] Urine Protein Urine Glucose (UA) Urine Ketones Urine Blood Urine Nitrite Urine Bilirubin Urine Urobilinogen Ur Leukocyte Esterase Salicylates Opiates Screen Methadone Screen Acetaminophen Barbiturate Screen Phencyclidine Screen Ur Amphetamines Screen MDMA (Ecstasy) Screen Benzodiazepines Screen Cocaine Screen U Marijuana (THC) Screen Alcohol, Quantitative Acetone, Qual HOSPITAL COURSE: 48 year old Telugu speaking male presents to the ED for syncope. History was obtained by patients family at bedside. As per daughter, at 7 pm patient was seated at work when he stood up and fell backwards. His boss held him up. He denies hitting his head or any loss of consciousness. Patient came home and was confused prompting his family to bring him into the ER. In the ED, fingerstick showed glucose >600. In hospital pt was started on insulin drip and later switched to subcute. Pt mental status improved as his blood glucose get better. Pt states that he dose not have insurance and dose not have a pcp. But he has fiends who helps him in getting metformin. we have started pt on insulin levemir 15 units daily as his HBa1c is high we even called pharmacies to find a rate if pt has to buy it from his pocket. Its about 200-300$ a month but pt refuses to buy it. We have also advised him to go to [facility] where he can get insulin for less. We also called [facility] in [facility] who states that they can give him metformin for free if he has a prescription. We have send the prescription for metformin to [facility]. We have send the Rx for insulin to [facility] . Pt states that he is going to get his medicaid fixed and will follow up with a doctor regularly. We have advised him to follow up with his own doctor or can go to [facility]. Strictly advised t be complaint with meds nd follow up with doctors. We have increased his metformin to 1000mg bid. Also starting him on gliizide 5mg daily. glipizide is also free at [facility]. Follow up with your pcp or with dr kirkpatrick. Follow up with owner professional engineer Dr. sidhu Take your medicines regularly. Follow DASH diet. We have increased your metformin to 1000mg bid. We have [facility] to [facility] on [facility]. We have started you on levemir 15 daily. we have also started him on lipitor 20 daily and baby aspirin daily Please check your sugar daily and make a log and present it to your pcp. If you develop chest pain, sob, hyperglycemia, headache, dizziness or any new symptoms please contact your doctor or go to hospital. Date of Admission:12/11/18 Date of Discharge: 12/12/18 Minutes to complete discharge: 45 Discharge Summary Reason For Visit: HYPERGLYCEMIA Current Active Problems Dehydration (Acute) Hyperglycemia (Acute) Syncope (Acute) Uncontrolled diabetes mellitus (Acute) Condition: Stable - Instructions Diet, Activity, Other Instructions: Follow up with your pcp or with dr kirkpatrick. Follow up with owner professional engineer Dr. sidhu Take your medicines regularly. Follow DASH diet. We have increased your metformin to 1000mg bid. [facility]. We have started you on levemir 15 daily. we have also started him on lipitor 20 mg daily and baby aspirin daily Please check your sugar daily and make a log and present it to your pcp. If you develop chest pain, sob, hyperglycemia, headache, dizziness or any new symptoms please contact your doctor or go to hospital. Referrals: Zachery Kirkpatrick MD [Staff Physician] - Destini Rivas MD [Staff Physician] - Disposition: HOME - Home Medications Comprehensive Discharge Medication List: Ambulatory Orders Alcohol Antiseptic Pads [Alcohol Prep Pads] 1 each TP DAILY #90 med..pad Insulin (Levemir) [Levemir Vial] 15 units SQ HS #1 units 12/12/18 Metformin HCl [Glucophage] 1,000 mg PO BID #180 tablet 12/12/18 Miscellaneous Medical Supply [Glucometer Device] 1 each AD ASDIR #1 kit Miscellaneous Medical Supply [Glucometer Test Strips #100] 1 each AD ASDIR #1 box 12/12/18 Syrge-Ndl,Ins 0.3 ml Half Patrick [Insulin Syringe] 1 each MC DAILY #90 disp.syrin 12/12/18 This patient is new to me today: Yes Date on this admission: 12/12/18 Emergency Visit: Yes ED Registration Date: 12/11/18 Care time: The patient presented to the Emergency Department on the above date and was hospitalized for further evaluation of their emergent condition. Critical Care patient: No - Discharge Referral Referred to [facility] No
[2018-12-12] MEDS ORDERED: INSULIN (LEVEMIR) 100 UNITS/ML UNITS SQ SCH (22:00)
== END 2018-12-12 15:24 | disposition home or self-care (01) | DRG 420 ==
LOC: JER 20:50 → JERBED 22:59 → J4W 12-12 12:05
PROVIDERS: ADMIT Internal Medicine; ATTEND Internal Medicine
DX: E11.00 Type 2 diabetes mellitus with hyperosmolarity without nonketotic hyperglycemic-hyperosmolar coma (NKHHC) (principal); E88.09 Other disorders of plasma-protein metabolism, not elsewhere classified; Z91.19 Patient's noncompliance with other medical treatment and regimen; Z79.4 Long term (current) use of insulin; Z79.84 Long term (current) use of oral hypoglycemic drugs; R86.0 Abnormal level of enzymes in specimens from male genital organs; R42 Dizziness and giddiness; E87.1 Hypo-osmolality and hyponatremia; E11.65 Type 2 diabetes mellitus with hyperglycemia
CPT/HCPCS: 36415; 70450-TC; 71045-TC-FY; 80053; 80061; 80307; 81003; 82009; 82140; 82550; 82803; 82962; 83036; 83605; 83721; 83735; 84484; 85025; 87086; 93005; 93010; 99285-25; J7030

== ENCOUNTER 2021-09-07 16:22 | Emergency (ER) | payer OTHER ==
[2021-09-07 16:27] VITALS: BP 148/95; PULSE 126; TEMP 98.3; BMI 22.8
== END 2021-09-07 17:07 | disposition home or self-care (01) ==
LOC: JERFT 16:22 → JER 16:22 → JERFT 17:07
DX: H60.312 Diffuse otitis externa, left ear (principal)
CPT/HCPCS: 99283-25

== ENCOUNTER 2021-10-12 09:06 | Inpatient (IN) | payer OTHER ==
[2021-10-12 09:29] VITALS: BMI 20.7
[2021-10-12 10:10] LABS: BASO % 0.3 % (0-2.0); HEMATOCRIT 42.5 % (35.4-49); HEMOGLOBIN 14.3 GM/dL (11.7-16.9); MCH 28.3 pg (25.7-33.7); MCHC 33.6 g/dl (32.0-35.9); MEAN CELL VOLUME 84.3 fl (80-96); MEAN PLT VOLUME 8.5 fl (7.5-11.1); MONO % 13.7 % (3.8-10.2); PLATELET COUNT 163 10^3/uL (134-434); RBC 5.05 M/mm3 (4.00-5.60); RDW 13.6 % (11.9-15.9); WHITE BLOOD COUNT 6.1 K/mm3 (4.0-10.0)
[2021-10-12 10:16] LABS: CHLORIDE 102 mmol/L (98-107); SODIUM 136 mmol/L (136-145)
[2021-10-12 10:20] LABS: ANION GAP 12 MMOL/L (8-16); CALCIUM 8.4 mg/dL (8.5-10.1); CO2 23 mmol/L (21-32); GLUCOSE,RANDOM 268 mg/dL (74-106); MAGNESIUM 2.2 mg/dL (1.8-2.4)
[2021-10-12 10:22] LABS: CREATININE 0.7 mg/dL (0.55-1.3); PHOSPHOROUS 3.9 mg/dL (2.5-4.9); SGOT/AST 14 U/L (15-37); SGPT/ALT 22 U/L (13-61)
[2021-10-12 10:25] LABS: BILIRUBIN,TOTAL 0.4 mg/dL (0.2-1); TOT PROT 6.4 g/dl (6.4-8.2)
[2021-10-12 10:26] LABS: ALK PHOS 109 U/L (45-117)
[2021-10-12 10:31] LABS: VENOUS BASE EXCESS -5.4 mmol/L (-2-2); VENOUS O2 SATURATION 72.2 % (70-80); VENOUS PH 7.315 (7.310-7.410)
[2021-10-12 11:05] LABS: ERYTHROCYTE SEDIMENTATION RATE 30 mm/hr (0-20)
[2021-10-12] MEDS ORDERED: VANCOMYCIN 1 GM in D5W (PRE-DOCKED) 1,000 MG/250 ML IVPB ONE (11:37)
[2021-10-12] MEDS ORDERED: AMPICILLIN - 2 GM in SODIUM CHLORIDE 100 ML IVPB ONE (11:40)
[2021-10-12] MEDS ORDERED: CEFTRIAXONE 2,000 MG in DEXTROSE 5%-WATER - 50 ML IVPB ONE (11:40)
[2021-10-12] MEDS ORDERED: VANCOMYCIN 1 GRAM (PRE-DOCKED) 1,000 MG/250 ML BAG IVPB ONE (11:40)
[2021-10-12] MEDS ORDERED: CEFTRIAXONE 1 GM/50 ML BAG ONE (11:40)
[2021-10-12] MEDS: CEFTRIAXONE 1,000 MG in DEXTROSE 5%-WATER - 50 ML IVPB ONE ×2 (11:42→11:45)
[2021-10-12] MEDS ORDERED: AMPICILLIN SODIUM 2 GM VIAL ONE (11:47)
[2021-10-12] MEDS ORDERED: CEFTRIAXONE 2 GM/100 ML BAG IVPB ONE (11:48)
[2021-10-12] MEDS ORDERED: MIDAZOLAM HCL 2 MG/2 ML SINGLE DOSE VIAL IVPUSH ONE ×2 (12:37→23:08)
[2021-10-12] MEDS ORDERED: MIDAZOLAM HCL 2 MG/2 ML SINGLE DOSE VIAL ONE ×3 (12:46→14:02)
[2021-10-12 15:14] LABS: CSF APPEARANCE CLEAR (CLEAR); CSF COLOR COLORLESS (COLORLESS); CSF WBC 5 mm3 (0-5)
[2021-10-12] MEDS ORDERED: LACTATED RINGERS SOLUTION 1,000 ML/1,000 ML INFUS.BAG IV SCH (17:15)
[2021-10-12] MEDS ORDERED: ceFAZolin SODIUM 1 GM VIAL ONE (17:36)
[2021-10-12] MEDS ORDERED: DEXTROSE 5%-WATER 100 ML IVPB ONE (17:37)
[2021-10-12 17:47] LABS: COCAINE, UR NEGATIVE (NEGATIVE); OPIATES, URI NEGATIVE (NEGATIVE); PHENCYCLIDINE,URINE NEGATIVE (NEGATIVE); URINE BARBITURATES NEGATIVE (NEGATIVE)
[2021-10-12 17:48] LABS: METHADONE, UR NEGATIVE (NEGATIVE)
[2021-10-12 17:57] LABS: URINE APPEARANCE SL CLOUDY; URINE COLOR YELLOW
[2021-10-12 17:58] LABS: PH,URINE 5.5 (5.0-8.0); URINE BILIRUBIN NEGATIVE (NEGATIVE); URINE KETONE >=80 mg/dl (NEGATIVE)
[2021-10-12 17:59] LABS: EPI CELLS 100.6 /uL (0-25.1); HYALINE CASTS 3.46 /uL (0-3.1); URINE BACTERIA 22.4 /uL (0-1359); URINE LEUK ESTERASE NEGATIVE (NEGATIVE); URINE NITRITE NEGATIVE (NEGATIVE); URINE PROTEIN 2+ (NEGATIVE); URINE RBC 19.2 /uL (0-23.9); URINE UROBILINOGEN 0.2 mg/dL (0.2-1.0); URINE WBC 86.6 /uL (0-25.8)
[2021-10-12] MEDS ORDERED: CEFEPIME 2 GM in DEXTROSE 5%-WATER 100 ML IVPB SCH (18:00)
[2021-10-12] MEDS ORDERED: CEFAZOLIN IVPB SCH (18:00)
[2021-10-12] MEDS ORDERED: WATER IVPB SCH (18:00)
[2021-10-12] MEDS ORDERED: DEXTROSE 5% IVPB SCH (18:00)
[2021-10-12 18:01] LABS: URINE AMPHETAMINES NEGATIVE (NEGATIVE); URINE BENZODIAZEPINES POSITIVE (NEGATIVE)
[2021-10-12 18:04] LABS: BF GLUCOSE (CSF ONLY) 165 mg/dL (40-70)
[2021-10-12] MEDS: CEFEPIME 2 GM in DEXTROSE 5%-WATER 100 ML IVPB SCH (19:51)
[2021-10-12] MEDS: ACYCLOVIR INJECTION 500 MG in SODIUM CHLORIDE 100 ML IVPB SCH (20:52)
[2021-10-12] MEDS: INSULIN SLIDING SCALE (NOVOLOG) 1 VIAL SQ SCH (21:48)
[2021-10-12] MEDS: INSULIN (LEVEMIR) 100 UNITS/ML UNITS SQ SCH (21:48)
[2021-10-13] MEDS ORDERED: VANCOMYCIN 1 GM in D5W (PRE-DOCKED) 1,000 MG/250 ML IVPB ONE
[2021-10-13] MEDS: VANCOMYCIN 1 GRAM (PRE-DOCKED) 1,000 MG/250 ML BAG IVPB SCH ×2 (00:12→12:30)
[2021-10-13] MEDS: ACYCLOVIR INJECTION 500 MG in SODIUM CHLORIDE 100 ML IVPB SCH ×3 (02:00→17:00)
[2021-10-13] MEDS: CEFEPIME 2 GM in DEXTROSE 5%-WATER 100 ML IVPB SCH ×3 (03:15→18:26)
[2021-10-13 07:46] LABS: BASO % 0.3 % (0-2.0); EOS % 0.1 % (0-4.5); HEMATOCRIT 39.5 % (35.4-49); HEMOGLOBIN 13.4 GM/dL (11.7-16.9); LYMPH % 19.3 % (8-40); MCH 28.2 pg (25.7-33.7); MCHC 33.8 g/dl (32.0-35.9); MEAN CELL VOLUME 83.4 fl (80-96); MEAN PLT VOLUME 8.7 fl (7.5-11.1); MONO % 14.1 % (3.8-10.2); NEUT % 66.2 % (42.8-82.8); PLATELET COUNT 172 10^3/uL (134-434); RBC 4.74 M/mm3 (4.00-5.60); RDW 13.6 % (11.9-15.9); WHITE BLOOD COUNT 8.3 K/mm3 (4.0-10.0)
[2021-10-13] MEDS: INSULIN (LEVEMIR) 100 UNITS/ML UNITS SQ SCH ×2 (08:02→21:36)
[2021-10-13] MEDS: INSULIN SLIDING SCALE (NOVOLOG) 1 VIAL SQ SCH ×5 (08:02→21:35)
[2021-10-13 08:04] LABS: CALCIUM 8.1 mg/dL (8.5-10.1)
[2021-10-13 08:06] LABS: ALBUMIN 2.4 g/dl (3.4-5.0); BLOOD UREA NITROGEN 11.3 mg/dL (7-18)
[2021-10-13 08:08] LABS: CREATININE 0.6 mg/dL (0.55-1.3); PHOSPHOROUS 3.1 mg/dL (2.5-4.9)
[2021-10-13 08:09] LABS: BILIRUBIN,TOTAL 0.4 mg/dL (0.2-1); TOT PROT 5.9 g/dl (6.4-8.2)
[2021-10-13] MEDS: ENOXAPARIN NA (PORCINE) 40 MG/0.4 ML DISP.SYRIN SQ SCH (10:51)
[2021-10-13] MEDS ORDERED: VANCOMYCIN 1 GM in D5W (PRE-DOCKED) 1,000 MG/250 ML IVPB SCH (12:00)
[2021-10-13] MEDS ORDERED: LACTATED RINGERS SOLUTION 1,000 ML/1,000 ML INFUS.BAG IV SCH (12:12)
[2021-10-13 13:16] LABS: HIV INTERPRETATION NEGATIVE (NEGATIVE)
[2021-10-13 13:53] LABS: ERYTHROCYTE SEDIMENTATION RATE 38 mm/hr (0-20)
[2021-10-13 13:58] LABS: INR 1.09 (0.83-1.09); PROTHROMBIN TIME (PATIENT) 12.2 SEC (9.7-13.0)
[2021-10-13 14:01] LABS: ACTIVATED PTT 31.4 SECONDS (25.2-36.5)
[2021-10-13 15:40] LABS: ARTERIAL BLD GAS O2 SATURATION 96.2 % (95-98); ARTERIAL BLOOD GAS BASE EXCESS -0.3 mmol/L (-2-2); ARTERIAL BLOOD GAS PO2 81.3 mmHg (80-100)
[2021-10-13] MEDS ORDERED: PT OWN MED DRAWER 7, Y5N ONE (16:57)
[2021-10-13] MEDS ORDERED: FUROSEMIDE 40 MG/4 ML INJECTABLE VIAL ONE (18:42)
[2021-10-13] MEDS: LACTATED RINGERS SOLUTION 1,000 ML/1,000 ML INFUS.BAG IV SCH (21:35)
[2021-10-14] MEDS: VANCOMYCIN 1 GRAM (PRE-DOCKED) 1,000 MG/250 ML BAG IVPB SCH ×3 (00:40→23:50)
[2021-10-14] MEDS: INSULIN SLIDING SCALE (NOVOLOG) 1 VIAL SQ SCH ×6 (01:21→21:29)
[2021-10-14] MEDS: ACYCLOVIR INJECTION 500 MG in SODIUM CHLORIDE 100 ML IVPB SCH ×3 (01:34→19:30)
[2021-10-14] MEDS: CEFEPIME 2 GM in DEXTROSE 5%-WATER 100 ML IVPB SCH ×3 (02:32→18:36)
[2021-10-14] MEDS: INSULIN (LEVEMIR) 100 UNITS/ML UNITS SQ SCH ×2 (06:44→21:29)
[2021-10-14 08:32] LABS: HEMATOCRIT 40.6 % (35.4-49); HEMOGLOBIN 13.5 GM/dL (11.7-16.9); MCH 27.3 pg (25.7-33.7); MCHC 33.3 g/dl (32.0-35.9); MEAN CELL VOLUME 82.1 fl (80-96); MEAN PLT VOLUME 8.8 fl (7.5-11.1); PLATELET COUNT 199 10^3/uL (134-434); RBC 4.94 M/mm3 (4.00-5.60); RDW 13.3 % (11.9-15.9); WHITE BLOOD COUNT 6.6 K/mm3 (4.0-10.0)
[2021-10-14] MEDS: LACTATED RINGERS SOLUTION 1,000 ML/1,000 ML INFUS.BAG IV SCH ×2 (08:46→09:33)
[2021-10-14 08:50] LABS: CHLORIDE 100 mmol/L (98-107); SODIUM 139 mmol/L (136-145)
[2021-10-14 08:54] LABS: ALBUMIN 2.6 g/dl (3.4-5.0); CALCIUM 8.2 mg/dL (8.5-10.1); CO2 26 mmol/L (21-32); GLUCOSE,RANDOM 69 mg/dL (74-106)
[2021-10-14 08:55] LABS: BLOOD UREA NITROGEN 5.2 mg/dL (7-18); MAGNESIUM 1.6 mg/dL (1.8-2.4)
[2021-10-14 08:56] LABS: SGPT/ALT 22 U/L (13-61)
[2021-10-14 08:57] LABS: BILIRUBIN,TOTAL 0.4 mg/dL (0.2-1); PHOSPHOROUS 3.3 mg/dL (2.5-4.9)
[2021-10-14 08:58] LABS: CREATININE 0.4 mg/dL (0.55-1.3); SGOT/AST 33 U/L (15-37)
[2021-10-14 09:00] LABS: ALK PHOS 89 U/L (45-117); ANION GAP 13 MMOL/L (8-16); TOT PROT 6.2 g/dl (6.4-8.2)
[2021-10-14] MEDS ORDERED: PT OWN MED DRAWER 7, Y5N ONE ×3 (09:20→21:20)
[2021-10-14] MEDS: ENOXAPARIN NA (PORCINE) 40 MG/0.4 ML DISP.SYRIN SQ SCH (09:33)
[2021-10-15] MEDS: INSULIN SLIDING SCALE (NOVOLOG) 1 VIAL SQ SCH ×7 (00:24→19:36)
[2021-10-15] MEDS: CEFEPIME 2 GM in DEXTROSE 5%-WATER 100 ML IVPB SCH ×3 (01:13→12:12)
[2021-10-15] MEDS: ACYCLOVIR INJECTION 500 MG in SODIUM CHLORIDE 100 ML IVPB SCH ×3 (01:25→17:28)
[2021-10-15] MEDS: INSULIN (LEVEMIR) 100 UNITS/ML UNITS SQ SCH ×2 (07:27→22:15)
[2021-10-15 08:00] LABS: BASO % 0.4 % (0-2.0); EOS % 0.3 % (0-4.5); HEMATOCRIT 41.8 % (35.4-49); HEMOGLOBIN 13.8 GM/dL (11.7-16.9); LYMPH % 19.9 % (8-40); MCH 27.1 pg (25.7-33.7); MEAN CELL VOLUME 82.4 fl (80-96); MEAN PLT VOLUME 8.9 fl (7.5-11.1); MONO % 14.1 % (3.8-10.2); NEUT % 65.3 % (42.8-82.8); PLATELET COUNT 231 10^3/uL (134-434); RBC 5.08 M/mm3 (4.00-5.60); RDW 13.4 % (11.9-15.9); WHITE BLOOD COUNT 7.2 K/mm3 (4.0-10.0)
[2021-10-15 08:04] LABS: CHLORIDE 102 mmol/L (98-107); SODIUM 141 mmol/L (136-145)
[2021-10-15 08:09] LABS: CALCIUM 8.2 mg/dL (8.5-10.1)
[2021-10-15 08:10] LABS: ALBUMIN 2.7 g/dl (3.4-5.0); CO2 29 mmol/L (21-32); GLUCOSE,RANDOM 108 mg/dL (74-106); MAGNESIUM 2.1 mg/dL (1.8-2.4); SGOT/AST 26 U/L (15-37)
[2021-10-15 08:12] LABS: BLOOD UREA NITROGEN 8.6 mg/dL (7-18); CREATININE 0.6 mg/dL (0.55-1.3); PHOSPHOROUS 3.7 mg/dL (2.5-4.9); SGPT/ALT 24 U/L (13-61)
[2021-10-15 08:15] LABS: ALK PHOS 91 U/L (45-117); BILIRUBIN,TOTAL 0.6 mg/dL (0.2-1); TOT PROT 6.3 g/dl (6.4-8.2)
[2021-10-15 08:31] LABS: ANION GAP 9 MMOL/L (8-16)
[2021-10-15] MEDS: KCL 10 MEQ IVPB 10 MEQ/100 ML INFUS.BAG IVPB SCH ×3 (09:21→11:34)
[2021-10-15] MEDS: ENOXAPARIN NA (PORCINE) 40 MG/0.4 ML DISP.SYRIN SQ SCH (09:21)
[2021-10-15] MEDS: POTASSIUM CHLORIDE TABS 20 MEQ TABLET.ER (FP) PO SCH ×2 (09:22→22:15)
[2021-10-15] MEDS: LACTATED RINGERS SOLUTION 1,000 ML/1,000 ML INFUS.BAG IV SCH ×2 (11:17→22:14)
[2021-10-15] MEDS ORDERED: cefTRIAXone SODIUM 1 GM VIAL ONE (12:15)
[2021-10-15] MEDS ORDERED: DEXTROSE 5%-WATER - 50 ML IVPB ONE (12:16)
[2021-10-15] MEDS: CEFTRIAXONE 1 GM in DEXTROSE 5%-WATER - 50 ML IVPB SCH (12:30)
[2021-10-15] MEDS ORDERED: ACETAMINOPHEN 325 MG TABLET (FP) PO PRN (19:07)
[2021-10-16] MEDS: INSULIN SLIDING SCALE (NOVOLOG) 1 VIAL SQ SCH ×6 (00:28→22:20)
[2021-10-16] MEDS ORDERED: PT OWN MED DRAWER 7, Y5N ONE ×2 (01:26→11:56)
[2021-10-16] MEDS: ACYCLOVIR INJECTION 500 MG in SODIUM CHLORIDE 100 ML IVPB SCH ×3 (01:32→17:02)
[2021-10-16] MEDS: INSULIN (LEVEMIR) 100 UNITS/ML UNITS SQ SCH ×2 (06:20→22:22)
[2021-10-16] MEDS: LACTATED RINGERS SOLUTION 1,000 ML/1,000 ML INFUS.BAG IV SCH ×2 (07:07→09:51)
[2021-10-16 08:26] LABS: HEMATOCRIT 38.6 % (35.4-49); MCH 27.6 pg (25.7-33.7); MCHC 33.6 g/dl (32.0-35.9); MEAN CELL VOLUME 81.9 fl (80-96); MEAN PLT VOLUME 8.5 fl (7.5-11.1); PLATELET COUNT 243 10^3/uL (134-434); RBC 4.71 M/mm3 (4.00-5.60); RDW 13.2 % (11.9-15.9); WHITE BLOOD COUNT 4.6 K/mm3 (4.0-10.0)
[2021-10-16] MEDS ORDERED: DEXTROSE 5%-WATER - 50 ML IVPB ONE (08:55)
[2021-10-16] MEDS ORDERED: cefTRIAXone SODIUM 1 GM VIAL ONE (08:55)
[2021-10-16 08:57] LABS: ALBUMIN 2.4 g/dl (3.4-5.0); CALCIUM 8.2 mg/dL (8.5-10.1)
[2021-10-16 08:58] LABS: BLOOD UREA NITROGEN 8.5 mg/dL (7-18); MAGNESIUM 2.1 mg/dL (1.8-2.4)
[2021-10-16 09:01] LABS: CREATININE 0.6 mg/dL (0.55-1.3); PHOSPHOROUS 3.1 mg/dL (2.5-4.9); TOT PROT 5.7 g/dl (6.4-8.2)
[2021-10-16 09:02] LABS: BILIRUBIN,TOTAL 0.4 mg/dL (0.2-1)
[2021-10-16] MEDS: CEFTRIAXONE 1 GM in DEXTROSE 5%-WATER - 50 ML IVPB SCH (09:52)
[2021-10-16] MEDS: ENOXAPARIN NA (PORCINE) 40 MG/0.4 ML DISP.SYRIN SQ SCH (09:52)
[2021-10-16] MEDS ORDERED: LACTATED RINGERS SOLUTION 1,000 ML/1,000 ML INFUS.BAG IV SCH (12:15)
[2021-10-17] MEDS: INSULIN SLIDING SCALE (NOVOLOG) 1 VIAL SQ SCH ×6 (01:19→23:38)
[2021-10-17] MEDS: ACYCLOVIR INJECTION 500 MG in SODIUM CHLORIDE 100 ML IVPB SCH ×3 (03:12→18:37)
[2021-10-17] MEDS ORDERED: ACETAMINOPHEN 325 MG TABLET (FP) PO PRN (07:48)
[2021-10-17] MEDS: INSULIN (LEVEMIR) 100 UNITS/ML UNITS SQ SCH (08:21)
[2021-10-17 09:22] LABS: HEMATOCRIT 40.1 % (35.4-49); HEMOGLOBIN 13.3 GM/dL (11.7-16.9); MCH 27.2 pg (25.7-33.7); MCHC 33.1 g/dl (32.0-35.9); MEAN CELL VOLUME 82.4 fl (80-96); MEAN PLT VOLUME 8.2 fl (7.5-11.1); PLATELET COUNT 307 10^3/uL (134-434); RBC 4.87 M/mm3 (4.00-5.60); RDW 13.2 % (11.9-15.9); WHITE BLOOD COUNT 6.9 K/mm3 (4.0-10.0)
[2021-10-17] MEDS ORDERED: PT OWN MED DRAWER 7, Y5N ONE ×3 (09:45→11:11)
[2021-10-17 09:46] LABS: ALBUMIN 2.5 g/dl (3.4-5.0); BLOOD UREA NITROGEN 8.4 mg/dL (7-18)
[2021-10-17] MEDS ORDERED: DEXTROSE 5%-WATER - 50 ML IVPB ONE (09:46)
[2021-10-17] MEDS ORDERED: cefTRIAXone SODIUM 1 GM VIAL ONE (09:46)
[2021-10-17 09:47] LABS: CALCIUM 8.2 mg/dL (8.5-10.1)
[2021-10-17 09:48] LABS: MAGNESIUM 1.7 mg/dL (1.8-2.4)
[2021-10-17 09:51] LABS: CREATININE 0.7 mg/dL (0.55-1.3)
[2021-10-17] MEDS: ENOXAPARIN NA (PORCINE) 40 MG/0.4 ML DISP.SYRIN SQ SCH (09:51)
[2021-10-17 09:52] LABS: TOT PROT 6.2 g/dl (6.4-8.2)
[2021-10-17] MEDS: CEFTRIAXONE 1 GM in DEXTROSE 5%-WATER - 50 ML IVPB SCH (09:52)
[2021-10-17 09:53] LABS: BILIRUBIN,TOTAL 0.4 mg/dL (0.2-1)
[2021-10-17 09:55] LABS: PHOSPHOROUS 3.6 mg/dL (2.5-4.9)
[2021-10-17] MEDS ORDERED: ACYCLOVIR INJECTION 500 MG in SODIUM CHLORIDE 100 ML IVPB SCH (10:00)
[2021-10-17] MEDS: LISINOPRIL 5 MG TABLET PO SCH (13:51)
[2021-10-17] MEDS ORDERED: MAGNESIUM OXIDE 400 MG TABLET (FP) PO ONE (15:22)
[2021-10-17] MEDS ORDERED: INSULIN (NOVOLOG MIX 70/30) 100 UNITS/ML MDV SQ SCH ×2 (16:30→19:15)
[2021-10-17] MEDS ORDERED: INSULIN (LEVEMIR) 100 UNITS/ML UNITS SQ SCH (22:00)
[2021-10-18] MEDS: ACYCLOVIR INJECTION 500 MG in SODIUM CHLORIDE 100 ML IVPB SCH ×2 (02:48→10:11)
[2021-10-18] MEDS: INSULIN SLIDING SCALE (NOVOLOG) 1 VIAL SQ SCH ×6 (02:57→21:57)
[2021-10-18] MEDS ORDERED: INSULIN (NOVOLOG MIX 70/30) 100 UNITS/ML MDV SQ SCH (08:00)
[2021-10-18 09:52] LABS: HEMOGLOBIN 12.8 GM/dL (11.7-16.9); MCH 27.3 pg (25.7-33.7); MCHC 32.9 g/dl (32.0-35.9); MEAN CELL VOLUME 82.8 fl (80-96); MEAN PLT VOLUME 8.1 fl (7.5-11.1); PLATELET COUNT 309 10^3/uL (134-434); RBC 4.71 M/mm3 (4.00-5.60); RDW 13.2 % (11.9-15.9); WHITE BLOOD COUNT 4.5 K/mm3 (4.0-10.0)
[2021-10-18] MEDS ORDERED: DEXTROSE 5%-WATER - 50 ML IVPB ONE (10:07)
[2021-10-18] MEDS ORDERED: cefTRIAXone SODIUM 1 GM VIAL ONE (10:07)
[2021-10-18] MEDS: INSULIN (NOVOLOG MIX 70/30) 100 UNITS/ML MDV SQ SCH ×2 (10:09→13:02)
[2021-10-18 10:10] LABS: BLOOD UREA NITROGEN 10.1 mg/dL (7-18); CALCIUM 8.4 mg/dL (8.5-10.1)
[2021-10-18 10:11] LABS: ALBUMIN 2.4 g/dl (3.4-5.0)
[2021-10-18] MEDS: ENOXAPARIN NA (PORCINE) 40 MG/0.4 ML DISP.SYRIN SQ SCH (10:11)
[2021-10-18] MEDS: CEFTRIAXONE 1 GM in DEXTROSE 5%-WATER - 50 ML IVPB SCH ×2 (10:12→16:03)
[2021-10-18 10:14] LABS: CREATININE 0.7 mg/dL (0.55-1.3); PHOSPHOROUS 3.3 mg/dL (2.5-4.9)
[2021-10-18 10:15] LABS: BILIRUBIN,TOTAL 0.4 mg/dL (0.2-1); TOT PROT 6.2 g/dl (6.4-8.2)
[2021-10-18] MEDS ORDERED: INSULIN (NOVOLOG) ASPART 100 UNITS/ML 10ML VIAL ONE (10:15)
[2021-10-18] MEDS: LISINOPRIL 5 MG TABLET PO SCH (10:20)
[2021-10-18] MEDS: CEFUROXIME AXETIL 500 MG TABLET PO SCH (21:58)
[2021-10-18 22:25] VITALS: TEMP 98.4
[2021-10-19] MEDS: INSULIN SLIDING SCALE (NOVOLOG) 1 VIAL SQ SCH ×3 (03:21→10:23)
[2021-10-19 06:02] VITALS: BP 134/98; PULSE 76
[2021-10-19] MEDS ORDERED: INSULIN (NOVOLOG MIX 70/30) 100 UNITS/ML MDV SQ SCH ×2 (07:00→16:30)
[2021-10-19] MEDS ORDERED: PT OWN MED DRAWER 7, Y5N ONE (07:01)
[2021-10-19] MEDS: CEFUROXIME AXETIL 500 MG TABLET PO SCH (10:23)
[2021-10-19] MEDS: ENOXAPARIN NA (PORCINE) 40 MG/0.4 ML DISP.SYRIN SQ SCH (10:23)
[2021-10-19] MEDS: LISINOPRIL 5 MG TABLET PO SCH (10:23)
[2021-10-19 10:30] LABS: HEMATOCRIT 40.8 % (35.4-49); HEMOGLOBIN 13.5 GM/dL (11.7-16.9); MCH 27.7 pg (25.7-33.7); MCHC 33.1 g/dl (32.0-35.9); MEAN CELL VOLUME 83.7 fl (80-96); PLATELET COUNT 414 10^3/uL (134-434); RBC 4.87 M/mm3 (4.00-5.60); RDW 13.1 % (11.9-15.9); WHITE BLOOD COUNT 5.8 K/mm3 (4.0-10.0)
[2021-10-19 10:56] LABS: CREATININE 0.9 mg/dL (0.55-1.3)
[2021-10-19 10:57] LABS: CALCIUM 8.8 mg/dL (8.5-10.1)
[2021-10-19 10:58] LABS: BILIRUBIN,TOTAL 0.4 mg/dL (0.2-1); MAGNESIUM 2.3 mg/dL (1.8-2.4); TOT PROT 6.9 g/dl (6.4-8.2)
[2021-10-19 11:00] LABS: PHOSPHOROUS 3.3 mg/dL (2.5-4.9)
[2021-10-20] MEDS ORDERED: INSULIN (NOVOLOG MIX 70/30) 100 UNITS/ML MDV SQ SCH (07:00)
[2021-10-20] MEDS ORDERED: INSULIN SLIDING SCALE (NOVOLOG) 1 VIAL SQ SCH (12:00)
== END 2021-10-19 19:16 | disposition home or self-care (01) | DRG 52 ==
LOC: JER 09:06 → JERBED 14:20 → J4W 17:11 → J7W 10-16 19:46
PROVIDERS: ADMIT Internal Medicine; ATTEND Internal Medicine
PROC: 009U3ZX Drainage of Spinal Canal, Percutaneous Approach, Diagnostic (ICD-10-PCS; principal; 2021-10-12)
DX: G93.41 Metabolic encephalopathy (principal); R50.9 Fever, unspecified; R53.1 Weakness; R45.1 Restlessness and agitation; E86.0 Dehydration; I25.10 Atherosclerotic heart disease of native coronary artery without angina pectoris; E78.5 Hyperlipidemia, unspecified; H70.002 Acute mastoiditis without complications, left ear; E11.65 Type 2 diabetes mellitus with hyperglycemia; J01.00 Acute maxillary sinusitis, unspecified; E87.6 Hypokalemia; R80.9 Proteinuria, unspecified; G04.90 Encephalitis and encephalomyelitis, unspecified; R63.0 Anorexia; Z68.20 Body mass index [BMI] 20.0-20.9, adult
CPT/HCPCS: 36415; 36600; 70470-TC; 70481-TC; 71045-TC-FY; 80053; 80061; 80307; 81003; 82010; 82140; 82550; 82607; 82803; 82945; 82962; 83036; 83605; 83615; 83735; 83930; 84100; 84157; 84260; 84443; 84484; 85025; 85027; 85379; 85610; 85651; 85730; 86140; 86618; 86780; 87040; 87070; 87086; 87205; 87389; 87529; 87899; 93005; 93010; 97116-GP; 97161-GP; 99285-25; C9803-CS; G0480; Q9967; U0003; U0005

== ENCOUNTER 2024-02-11 10:45 | Emergency (ER) | payer OTHER ==
[2024-02-11 11:05] VITALS: BP 152/85; PULSE 93; RESP 16; TEMP 97.9; BMI 20.7
[2024-02-11] MEDS ORDERED: KETOROLAC TROMETHAMINE 30 MG/1 ML VIAL ONE (12:14)
[2024-02-11] MEDS: KETOROLAC TROMETHAMINE 30 MG/1 ML VIAL IM ONE (12:19)
== END 2024-02-11 13:25 | disposition home or self-care (01) ==
LOC: JER 10:45
PROC: 3E023GC Introduction of Other Therapeutic Substance into Muscle, Percutaneous Approach (ICD-10-PCS; principal; 2024-02-11)
DX: R07.0 Pain in throat (principal); G89.29 Other chronic pain; K08.89 Other specified disorders of teeth and supporting structures
CPT/HCPCS: 36415; 82962; 84484; 87651; 93005; 93010; 99284-25